=== PATIENT | male | born 1990 | race Caucasian/White ===

== ENCOUNTER 2020-10-09 01:07 | Observation (INO) ==
[2020-10-09] MEDS ORDERED: Acetaminophen 325 MG TABLET PO PRN (02:54)
[2020-10-09] MEDS ORDERED: Ondansetron 4 MG/2 ML VIAL IVP PRN (02:54)
[2020-10-09] MEDS ORDERED: Naloxone 0.4 MG/ML INJ IVP PRN (02:54)
[2020-10-09] MEDS ORDERED: Perflutren Lipid Microsphere 1.3 ML in 0.9 % Sodium Chloride 8.7 ML IVP PRN (03:03)
[2020-10-09] MEDS ORDERED: niCARdipine 20 MG/200 ML MLS IVC ONE (03:12)
[2020-10-09] MEDS: niCARdipine 20 MG/200 ML MLS IVC SCH ×5 (03:16→18:44)
[2020-10-09 05:47] LABS: BUN/Creatinine Ratio 12 (6-26); Blood Urea Nitrogen 12 mg/dL (6-20); Calcium 9.5 mg/dL (8.6-10.3); Carbon Dioxide 26 mEq/L (23-29); Chloride 101 mEq/L (98-107); Glucose 108 mg/dL (70-105); Magnesium 2.1 mg/dL (1.6-2.6); Osmolality,Calculated 284 (280-300); Potassium 3.2 mEq/L (3.5-5.1); Sodium 137 mEq/L (136-145); eGFR For African Americans > 60 (> 60); eGFR For Non-African Americans > 60 (> 60)
[2020-10-09 05:52] LABS: Troponin I 0.08 ng/mL (< 0.04)
[2020-10-09] MEDS ORDERED: amLODIPine 5 MG TABLET PO SCH (09:00)
[2020-10-09] MEDS: lisinopriL 5 MG TABLET PO SCH (10:24)
[2020-10-09] MEDS: carvediloL 6.25 MG TABLET PO SCH (17:40)
[2020-10-10 02:26] LABS: Basophils # 0.1 K/mcL (0.0-0.2); Basophils % 0.7 %; Eosinophils # 0.3 K/mcL (0.0-0.6); Eosinophils % 2.5 %; Hematocrit 48.3 % (37.5-50.1); Hemoglobin 16.4 g/dL (12.9-16.9); Immature Granulocytes % 0.2 % (0-4); Lymphocytes # 1.6 K/mcL (0.6-4.6); Lymphocytes % 15.8 %; Mean Corpuscular Hemoglobin 28.3 pg (28.0-33.3); Mean Corpuscular Volume 83.3 fL (83.0-100.0); Mean Platelet Volume 11.5 fL (9.4-12.4); Monocytes # 0.8 K/mcL (0.0-1.3); Neutrophils # 7.3 K/mcL (1.6-8.9); Platelet Count 263 K/mcL (140-400); Segmented Neutrophils % 72.8 %
[2020-10-10 02:44] LABS: BUN/Creatinine Ratio 14 (6-26); Blood Urea Nitrogen 21 mg/dL (6-20); Calcium 9.3 mg/dL (8.6-10.3); Carbon Dioxide 23 mEq/L (23-29); Chloride 104 mEq/L (98-107); Chol/HDL Ratio 4.9 (0-4.9); Cholesterol 190 mg/dL (< 200); Glucose 114 mg/dL (70-105); HDL Cholesterol 39 mg/dL (40-59); LDL Cholesterol,Calculated 118 mg/dL (< 100); Osmolality,Calculated 290 (280-300); Potassium 3.5 mEq/L (3.5-5.1); Sodium 138 mEq/L (136-145); Triglycerides 164 mg/dL (< 150); eGFR For African Americans > 60 (> 60); eGFR For Non-African Americans 55 (> 60)
[2020-10-10 05:21] LABS: Estimated Average Glucose 114 mg/dl; Hemoglobin A1C 5.6 %
[2020-10-10 07:21] VITALS: BP 127/4
[2020-10-10] MEDS: lisinopriL 5 MG TABLET PO SCH (08:09)
[2020-10-10] MEDS: carvediloL 6.25 MG TABLET PO SCH (08:09)
== END 2020-10-10 09:51 | disposition home or self-care (01) ==
LOC: 2NNU → SUATTDRO 02:44
PROVIDERS: ADMIT Family Medicine; ATTEND Pharmacist